=== PATIENT | female | born 1955 | race Caucasian/White ===

== ENCOUNTER 2024-10-02 17:40 | Emergency (ER) | payer MEDICARE | END 2024-10-02 19:50 | disposition home or self-care (01) | LOC: FB.ED 17:40 | DX: S33.8XXA Sprain of other parts of lumbar spine and pelvis, initial encounter (principal); J44.9 Chronic obstructive pulmonary disease, unspecified; K21.9 Gastro-esophageal reflux disease without esophagitis; F17.200 Nicotine dependence, unspecified, uncomplicated; Z79.51 Long term (current) use of inhaled steroids; Z79.899 Other long term (current) drug therapy; W19.XXXA Unspecified fall, initial encounter | CPT/HCPCS: 72220; 73521; 99284 ==

== ENCOUNTER 2024-11-10 00:56 | Emergency (ER) | payer MEDICARE ==
[2024-11-10] MEDS: LORazepam 2 MG/ML SDV IM ONE (01:41)
== END 2024-11-10 02:44 | disposition home or self-care (01) ==
LOC: FB.ED 00:56
DX: G25.0 Essential tremor (principal); J44.9 Chronic obstructive pulmonary disease, unspecified; K21.9 Gastro-esophageal reflux disease without esophagitis; Z79.899 Other long term (current) drug therapy; Z79.51 Long term (current) use of inhaled steroids; Z87.891 Personal history of nicotine dependence
CPT/HCPCS: 96372; 99284; A9270; J2060; 99283

== ENCOUNTER 2025-02-20 11:00 | Emergency (ER) | payer MEDICARE, MEDICAID ==
[2025-02-20 11:44] LABS: MEAN PLATELET VOLUME 8.2 fL (7.1-12.4); PLATELET COUNT,PLT 182 x10(3)uL (151-488); RED BLOOD CELL COUNT 2.23 x10(6)uL (3.60-5.20); RED CELL DISTRIBUTION WIDTH 17.3 % (12.3-16.5); WHITE BLOOD CELL COUNT,WBC 15.8 x10-3/uL (3.0-10.3)
[2025-02-20 11:45] LABS: BLOOD UREA NITROGEN,BUN 13 mg/dL (7-18); CARBON DIOXIDE,CO2 29 mmol/L (21-32); CHLORIDE,CL 99 mmol/L (100-110); CREATININE 0.9 mg/dL (0.55-1.02); EST CRCL DRUG DOSING (CG) 48.80 mL/min; ESTIMATED GFR 69 mL/min (>60); GLUCOSE RANDOM 137 mg/dL (80-116); POTASSIUM,K 4.1 mmol/L (3.5-5.3); SODIUM,NA 137 mmol/L (135-145)
[2025-02-20 11:51] LABS: A/G RATIO 0.5; ALANINE AMINOTRANSFERASE,ALT 16 U/L (12-36); ASPARTATE AMNIOTRANSFERASE,AST 23 IU/L (5-25); BILIRUBIN TOTAL 0.4 mg/dL (0.1-1.3); PROTEIN TOTAL,TP 7.6 g/dL (6.0-8.0)
[2025-02-20 11:54] LABS: LACTIC ACID 1.3 mmol/L (0.4-2.0)
[2025-02-20 12:00] LABS: LYMPHOCYTES PERCENT MAN 10 % (13-37); MONOCYTES PERCENT MAN 5 % (4-12); SEG NEUTROPHILS PERCENT MAN 85 % (46-82)
[2025-02-20] MEDS: Magnesium Sulfate 2 GM/50 mL 2 GM in Premix Bag 1 BAG IV ONE (12:07)
== END 2025-02-20 18:14 ==
LOC: FB.ED 11:00
DX: R09.02 Hypoxemia (principal); Z99.81 Dependence on supplemental oxygen; D64.9 Anemia, unspecified; C34.90 Malignant neoplasm of unspecified part of unspecified bronchus or lung; C79.51 Secondary malignant neoplasm of bone; Z79.899 Other long term (current) drug therapy; Z87.891 Personal history of nicotine dependence
CPT/HCPCS: 36415; 71250; 80053; 83605; 83735; 84484; 85025; 93005; 94640; 96365; 99285; A9270; J3475